=== PATIENT | male | born 1980 | race Caucasian/White ===

== ENCOUNTER 2016-08-14 14:05 | Emergency (ER) | payer OTHER ==
[2016-08-14 14:07] VITALS: TEMP 36.7
[2016-08-14] MEDS ORDERED: OXYCODONE HCL IR 5 MG TAB (IMMEDIATE RELEASE) PO STA (14:18)
--- NOTE | 2016-08-14 15:04 | DIAGNOSTIC IMAGING REPORT ---
LEFT HIP 2 VIEWS HISTORY: L hip pain COMPARISON: None. FINDINGS: No acute fracture or dislocation. Small well-corticated ossific density at the tip of the greater trochanter is likely chronic. Cartilage spaces are maintained for age. The visualized pelvic bones are intact. Soft tissues are unremarkable. No radiopaque foreign bodies. IMPRESSION: No fracture or dislocation within the left hip. Electronically signed by: Brennan Swanson M.D. 08/14/2016 3:03 PM Dictated Date/Time: 08/14/2016 3:01 PM
--- NOTE | 2016-08-14 15:06 | DIAGNOSTIC IMAGING REPORT ---
LEFT ANKLE 3 VIEWS HISTORY: L ankle pain COMPARISON: None. FINDINGS: Subtle lucency at the medial malleolus suggestive of a nondisplaced fracture. This is age-indeterminate and could represent an acute or partially healed fracture. Mild soft tissue swelling. No radiopaque foreign bodies. IMPRESSION: Nondisplaced lucency at the medial malleolus consistent with an age-indeterminate fracture. Electronically signed by: Brennan Swanson M.D. 08/14/2016 3:05 PM Dictated Date/Time: 08/14/2016 3:03 PM
[2016-08-14] MEDS ORDERED: TRAM-10 PO (15:16)
[2016-08-14] MEDS ORDERED: TRAMADOL HCL 50 MG HOME PACK PO ONE (15:30)
--- NOTE | 2016-08-14 15:33 | EMERGENCY ROOM VISIT NOTE ---
History First contact with patient: 14:12 Chief Complaint: ANKLE PAIN Stated Complaint: LEFT ANKLE History of Present Illness The patient is a 35 year old male who presents to the Emergency Room with complaints of a left hip and left ankle injury. The patient reports that he was helping family members chain saw a tree. He reports that the tree broke and hit him in the ankles. The patient reports that he flipped over in the air and landed on his left hip as well. He complains mostly of medial left ankle pain, rating his discomfort an 8 out of 10. His left hip pain is rated a 5 out of 10. He denies any head injury, neck pain, back pain, chest pain, shortness of breath or abdominal pain. Review of Systems 10 system review was performed and was negative except for pertinent positives and negatives as indicated in history of present illness Past Medical/Surgical History Medical Problems: (1) Bipolar Affective Nos (2) Tobacco Use Disorder Surgical Problems: (1) No history of previous surgery Family History FH: cancer FH: diabetes mellitus FH: heart disease FH: kidney disease Social History Smoking Status: Never Smoker Alcohol Use: occasionally Marital Status: single Housing Status: lives with family Occupation Status: unemployed Current/Historical Medications Scheduled PRN Tramadol (Ultram), 1-2 TAB PO Q4H PRN for Pain Allergies Coded Allergies: No Known Allergies (Unverified , 08/14/16) Physical Exam Vital Signs Date Time Temp Pulse Resp B/P Pulse Ox O2 Delivery O2 Flow Rate FiO2 08/14/16 14:07 36.7 106 20 118/66 95 Room Air Physical Exam CONSTITUTIONAL: Healthy and well nourished. Alert and oriented X 3 with positive affect. Patient does not appear in any acute distress. HEENT: Normocephalic, atraumatic. Pupils equal, round and reactive. No epistaxis, hemotympanum, raccoon's eyes or Gonzalez sign. NECK: Full active range of motion without discomfort. RESPIRATORY: Clear to auscultation bilaterally with no wheezing, crackles, rhonchi or stridor. CARDIOVASCULAR: Regular rate and rhythm with no murmurs, rubs or gallops. GASTROINTESTINAL: Bowel sounds present in all quadrants. Soft and nontender to palpation. MUSCULOSKELETAL: Examination of the left ankle does not show any open wounds, edema or ecchymosis. He is mildly tender over the medial malleolus. No tenderness over the lateral malleolus or ligament. Negative anterior draw. Examination shows no pain with logroll of the left hip. He has mild tenderness to palpation over the left lateral hip region. Pelvis is stable with rock. No tenderness to palpation through the lower lumbar spine or SI joints. Distal pulses are intact. INTEGUMENTARY: No rash or other significant dermatologic conditions noted. NEUROLOGIC: Left lower extremity is sensory intact. Medical Decision & Procedures ER Provider Diagnostic Interpretation: My interpretation of left hip x-rays does not show any acute fractures or dislocation. Radiologist report was also reviewed with concurrence. My interpretation of left hip x-ray shows a line of lucency through the medial malleolus without any obvious displacement, ankle mortise asymmetry or dislocation. Radiologist report is as follows: LEFT ANKLE 3 VIEWS HISTORY: L ankle pain COMPARISON: None. FINDINGS: Subtle lucency at the medial malleolus suggestive of a nondisplaced fracture. This is age-indeterminate and could represent an acute or partially healed fracture. Mild soft tissue swelling. No radiopaque foreign bodies. IMPRESSION: Nondisplaced lucency at the medial malleolus consistent with an age-indeterminate fracture. Medications Administered Medications (Trade) Dose Ordered Sig/Britton Route Start Time Stop Time Status Last Admin Dose Admin Oxycodone HCl (Roxicodone Immediate Rel Tab) 5 mg NOW STAT PO 08/14/16 14:18 08/14/16 14:20 DC 08/14/16 14:24 5 MG ED Course Patient history and physical exam were performed. Nurse's notes were reviewed. Vital signs were reviewed and were normal. She was administered OxyIR 5 mg for pain. Denies pack was applied. X-rays of the left hip were normal. X- rays of the left ankle shows a line of lucency through the medial malleolus without displacement. The patient denies any prior history of left ankle injuries, therefore I suspect that this is an acute fracture. A posterior Ortho -Glass splint and crutches were applied. Neurovascular check after splint placement was normal. The patient was encouraged to intermittently apply ice to areas of discomfort. Elevation of the ankle as needed for additional pain relief. Ibuprofen and Tylenol in alternating fashion for baseline pain relief. The patient was provided a home pack and prescription for Ultram as needed for breakthrough pain. The patient was instructed to follow-up with [facility] for further reevaluation and management. With his insurance, he will need a referral from his PCP as well. The patient voiced understanding of all discharge instructions, was happy with plan of care, and rated his pain a 3 out of 10 at the time of discharge. Medical Decision Impression Primary Impression: Fracture of medial malleolus, left, closed Additional Impression: Contusion of left hip Departure Information Dispostion Home / Self-Care Prescriptions Tramadol (Ultram) 50 Mg Tab 1-2 TAB PO Q4H Y for Pain, #20 TAB For Initial Treatment Prov: Naga Paulson PA 08/14/16 Referrals Alonzo Ibarra M.D. Forms HOME CARE DOCUMENTATION FORM, IMPORTANT VISIT INFORMATION Patient Instructions My [facility] Additional Instructions Ice and elevate ankle for swelling and pain. Ibuprofen 800 mg and/or Tylenol 1000 mg every 8 hours. You may also alternate these medications for more effective pain relief: Ibuprofen --4 HRS--> Tylenol --4 HRS--> ibuprofen --4 HRS--> Tylenol .... Ultram as needed for additional pain relief. Keep splint dry. No weight on splint - use crutches. Follow-up with [facility] for further evaluation and treatment - call for appointment. You will also need to call your family doctor for a referral. Problem Qualifiers Primary Impression: Fracture of medial malleolus, left, closed Encounter type: initial encounter Fracture alignment: nondisplaced Qualified Codes: S82.55XA - Nondisplaced fracture of medial malleolus of left tibia, initial encounter for closed fracture Additional Impression: Contusion of left hip Encounter type: initial encounter Qualified Codes: S70.02XA - Contusion of left hip, initial encounter
[2016-08-14 15:58] VITALS: BP 123/62; PULSE 62; O2SAT 98
== END 2016-08-14 16:00 | disposition home or self-care (01) ==
LOC: C.EDB 14:06 → C.EDD 16:00
DX: S82.892A Other fracture of left lower leg, initial encounter for closed fracture (principal); S70.02XA Contusion of left hip, initial encounter; W20.8XXA Other cause of strike by thrown, projected or falling object, initial encounter; F31.9 Bipolar disorder, unspecified; F17.200 Nicotine dependence, unspecified, uncomplicated; Z80.9 Family history of malignant neoplasm, unspecified; Z83.3 Family history of diabetes mellitus; Z82.49 Family history of ischemic heart disease and other diseases of the circulatory system; Z84.1 Family history of disorders of kidney and ureter